=== PATIENT | female | born 1960 | race Caucasian/White ===

== ENCOUNTER 2023-12-14 14:30 | Emergency (ER) | payer BC ==
[2023-12-14 16:55] LABS: BASOPHILS PERCENT AUTO 0.3 % (0.1-1.3); EOSINOPHILS ABSOLUTE AUTO 0.09 K/uL (0.00-0.40); EOSINOPHILS PERCENT AUTO 1.3 % (0.0-5.4); HEMATOCRIT 43.2 % (34.3-46.0); HEMOGLOBIN 14.8 g/dL (11.2-15.5); IMMATURE GRAN PERCENT AUTO 0.1 % (0.0-0.7); LYMPHOCYTES ABSOLUTE AUTO 1.19 K/uL (0.8-3.3); LYMPHOCYTES PERCENT AUTO 17.3 % (11.4-47.7); MEAN CORPUSCULAR HEMOGLOBIN 30.1 pg (31.6-35.5); MEAN CORPUSCULAR HGB CONC 34.3 g/dL (31.6-35.5); MONOCYTES PERCENT AUTO 8.7 % (3.3-12.6); NEUTROPHILS ABSOLUTE AUTO 4.96 K/uL (1.0-7.6); NEUTROPHILS PERCENT AUTO 72.3 % (40.0-78.1); PLATELET COUNT,PLT 290 K/uL (130-375); RED BLOOD CELL COUNT 4.91 M/uL (3.77-5.24); WHITE BLOOD CELL COUNT,WBC 6.9 K/uL (3.2-11.0)
[2023-12-14 16:56] LABS: BASOPHILS ABSOLUTE AUTO 0.02 K/uL (0.00-0.10); IMMATURE GRAN ABSOLUTE AUTO 0.01 K/uL (0.00-0.23)
[2023-12-14 17:15] LABS: PROTHROMBIN TIME 10.1 sec (9.2-10.6); PTT,PARTIAL THROMBOPLSTIN TIME 25.5 sec (21.8-27.3)
[2023-12-14 17:18] LABS: ANION GAP 12.3 mmol/L (5.0-14.0); CALCIUM 9.6 mg/dL (8.5-10.1); CREATININE 0.9 mg/dL (0.6-1.0); EST CRCL DRUG DOSING (CG) 61.41 mL/min; MAGNESIUM 1.9 mg/dL (1.8-2.4); PHOSPHORUS 3.3 mg/dL (2.5-4.9); POTASSIUM,K 3.7 mmol/L (3.6-5.2); TROPONIN I HIGH SENSITIVITY 5.2 pg/mL (<=60.3)
== END 2023-12-14 19:11 | disposition home or self-care (01) ==
LOC: JP.ED 14:30
DX: R55 Syncope and collapse (principal)
CPT/HCPCS: 36415; 70450; 71046; 71046-26; 80048; 83735; 84100; 84484; 85025; 85610; 85730; 93005; 99284

== ENCOUNTER 2024-04-30 17:03 | Observation (INO) | payer BC ==
[2024-04-30] MEDS: HYDROmorphone 0.5 MG/0.5 ML Syringe IVPUSH ONE (17:23)
[2024-04-30] MEDS: Ondansetron 4 MG/2 ML SDV IVPUSH ONE (17:23)
[2024-04-30 17:25] LABS: BASOPHILS PERCENT AUTO 0.3 % (0.1-1.3); EOSINOPHILS PERCENT AUTO 1.5 % (0.0-5.4); HEMATOCRIT 40.9 % (34.3-46.0); HEMOGLOBIN 14.2 g/dL (11.2-15.5); IMMATURE GRAN PERCENT AUTO 0.2 % (0.0-0.7); LYMPHOCYTES ABSOLUTE AUTO 2.36 K/uL (0.8-3.3); LYMPHOCYTES PERCENT AUTO 35.9 % (11.4-47.7); MEAN CORPUSCULAR HEMOGLOBIN 30.7 pg (31.6-35.5); MEAN CORPUSCULAR HGB CONC 34.7 g/dL (31.6-35.5); MEAN CORPUSCULAR VOLUME 88.5 fL (81.4-99.0); MONOCYTES ABSOLUTE AUTO 0.74 K/uL (0.20-0.90); MONOCYTES PERCENT AUTO 11.3 % (3.3-12.6); NEUTROPHILS ABSOLUTE AUTO 3.34 K/uL (1.0-7.6); NEUTROPHILS PERCENT AUTO 50.8 % (40.0-78.1); PLATELET COUNT,PLT 253 K/uL (130-375); RED BLOOD CELL COUNT 4.62 M/uL (3.77-5.24); WHITE BLOOD CELL COUNT,WBC 6.6 K/uL (3.2-11.0)
[2024-04-30 17:29] LABS: BASOPHILS ABSOLUTE AUTO 0.02 K/uL (0.00-0.10); IMMATURE GRAN ABSOLUTE AUTO 0.01 K/uL (0.00-0.23)
[2024-04-30 17:41] LABS: ANION GAP 15.6 mmol/L (5.0-14.0); CALCIUM 9.2 mg/dL (8.5-10.1); EST CRCL DRUG DOSING (CG) 55.27 mL/min; POTASSIUM,K 3.6 mmol/L (3.6-5.2)
[2024-04-30] MEDS ORDERED: fentaNYL 250 MCG/5 ML SDV ONE (18:42)
[2024-04-30] MEDS ORDERED: Rocuronium 50 MG/5 ML Vial ONE (18:43)
[2024-04-30] MEDS ORDERED: Dexamethasone 4 MG/ML SDV ONE (18:43)
[2024-04-30] MEDS ORDERED: Ondansetron 4 MG/2 ML SDV ONE (18:43)
[2024-04-30] MEDS ORDERED: Neostigmine Methylsulfate 10 MG/10 ML MDV ONE (18:43)
[2024-04-30] MEDS ORDERED: Glycopyrrolate 0.2 MG/ML 5 ML MDV ONE (18:43)
[2024-04-30] MEDS ORDERED: Propofol 200 MG/20 ML SDV ONE (18:43)
[2024-04-30] MEDS: ceFAZolin 1 GM in Premix Bag 1 BAG IV ONE (18:48)
[2024-04-30] MEDS: ceFAZolin 1 GM Vial ONE (18:49)
[2024-04-30] MEDS: Sodium Chloride 0.9% 50 ML ONE (18:49)
[2024-04-30] MEDS: Bupivacaine 0.5% 50 ML MDV ONE (19:25)
[2024-04-30] MEDS ORDERED: Ketorolac 30 MG/ML SDV ONE (20:05)
[2024-04-30] MEDS ORDERED: Morphine 2 MG/ML SYRINGE IVPUSH PRN (20:09)
[2024-04-30] MEDS ORDERED: Acetaminophen/HYDROcodone 325-5 MG Tab PO PRN (20:09)
[2024-04-30] MEDS ORDERED: oxyCODONE 5 MG Tab PO PRN (20:15)
[2024-04-30] MEDS: Ondansetron 4 MG Tab.DIS PO PRN (20:58)
[2024-04-30] MEDS ORDERED: Metoclopramide 10 MG/2 ML SDV IVPUSH SCH (21:45)
[2024-04-30] MEDS: Metoclopramide 10 MG/2 ML SDV IVPUSH PRN (21:47)
[2024-04-30] MEDS: Sodium Chloride 0.9% 1,000 ML IV SCH (21:49)
[2024-04-30] MEDS: Nozin Nasal Sanitizer NASBOTH SCH (23:54)
[2024-05-01] MEDS: Ondansetron 4 MG/2 ML SDV IVPUSH PRN (07:43)
[2024-05-01] MEDS: Acetaminophen/oxyCODONE 325-5 MG Tab PO PRN (09:43)
[2024-05-01] MEDS: hydrOXYzine HCl 25 MG Tab PO ONE (12:21)
== END 2024-05-01 13:30 | disposition home or self-care (01) ==
LOC: JP.ED 17:03 → JP.SDS 18:13 → JP.MS 20:09
PROVIDERS: ADMIT Specialist; ATTEND Specialist
DX: S82.842A Displaced bimalleolar fracture of left lower leg, initial encounter for closed fracture (principal); X58.XXXA Exposure to other specified factors, initial encounter
CPT/HCPCS: 27814; 36415; 73600; 76000; 80048; 85025; 96361; 96374; 96375; 96376; 99284; A9270; C1713; G0378; J0665; J0689; J1100; J1596; J1885; J2405; J2704; J2710; J2765; J3010; J7030; Q0162; 01480-QZ; J3490